=== PATIENT | male | born 1945 | race Asian ===

== ENCOUNTER 2017-04-03 15:31 | Emergency (ER) | payer MEDICARE, OTHER ==
--- NOTE | 2017-04-03 16:48 | RAD ---
HISTORY: Fall, head trauma COMPARISONS: None TECHNIQUE: Multiple contiguous axial CT scans were obtained of the head without intravenous contrast. FINDINGS: HEMORRHAGE/INFARCT: There is no hemorrhage or acute infarct. MASSES/SHIFT: There is no mass or shift. EXTRA-AXIAL SPACES: There are no extra-axial fluid collections. SULCI AND VENTRICLES: There is diffuse and proportional enlargement of the sulci and ventricles. CEREBRUM: There is encephalomalacia consistent with remote infarct of the left posterior frontal and anterior parietal lobe, of the left basal ganglia, and of the right frontal lobe. BRAINSTEM: There are no focal parenchymal abnormalities. CEREBELLUM: There are no focal parenchymal abnormalities. VESSELS: The vessels are grossly normal. PARANASAL SINUSES: The paranasal sinuses are clear. ORBITS: The orbits are unremarkable. BONES AND SOFT TISSUE: No bone or soft tissue abnormalities are noted. OTHER: None IMPRESSION: 1. INVOLUTIONAL CHANGE WITH MULTIFOCAL CHRONIC INFARCTS. 2. NO ACUTE INTRACRANIAL PATHOLOGY.
--- NOTE | 2017-04-03 16:55 | RAD ---
HISTORY: Fall, head trauma COMPARISONS: None TECHNIQUE: Multiple contiguous axial CT scans were obtained of the cervical spine without intravenous contrast, with coronal and sagittal multiplanar reformations. FINDINGS: BRAIN: The visualized brain is unremarkable CENTRAL CANAL: Evaluation of the central canal is limited on CT technique; however, there is no obvious canalicular mass or epidural hemorrhage. ALIGNMENT: There is straightening with reversal of the normal cervical lordosis. VERTEBRAL BODIES: The odontoid process is intact. The atlantoaxial intervals are symmetric. The vertebral bodies are normal in attenuation, without fracture. There is multilevel anterolateral marginal osteophyte formation. JOINTS: There is osteoarthritis of intervertebral facet joints. MUSCULATURE: Unremarkable INTERVERTEBRAL DISCS: There is diffuse loss of intervertebral disc height. AXIAL IMAGES: On axial imaging, there is diffuse moderate neural foraminal narrowing, more severe narrowing on the right at C6-C7. There is mild narrowing of the central canal at C6-C7. SOFT TISSUES: There is minimal ossification of the tectorial membrane. The visualized soft tissues of the neck are unremarkable. The prevertebral fat stripe is preserved. OTHER: None. IMPRESSION: DEGENERATIVE DISC DISEASE AND OSTEOARTHRITIS. NO ACUTE OSSEOUS INJURY TO THE CERVICAL SPINE
--- NOTE | 2017-04-03 18:04 | ED ---
Head Injury - HPI Summary HPI Summary: Pt here w/ head injury earlier today. Was hiking with family and as he took his last step down from trail, fell forward - tripped -hit Rt hand and top of head. Head is bleeding. No LOC, JAMISON, change in vision, nausea, vomiting, neck pain, weakness, numbness, tingling, syncope. Pt went to lunch with his family after accident - here because he;s still bleeding. Takes plavix and ASA d/t an old CVA. Rt wrist is w/ FROM and w/o pain - mild abrasion and bruising here only. No other areas of injury to report. - History Of Current Complaint Chief Complaint: EDLacSutureRecheck Stated Complaint: FALL/HEAD LAC Time Seen by Provider: 04/03/17 17:34 Hx Obtained From: Patient, Family/Operations Controller - daughter, Pain Intensity: 2 - Allergies/Home Medications Allergies/Adverse Reactions: Allergies Allergy/AdvReac Type Severity Reaction Status Date / Time No Known Allergies Allergy Verified 04/03/17 15:35 PMH/Surg Hx/FS Hx/Imm Hx Previously Healthy: Yes Endocrine/Hematology History: Reports: Hx Anticoagulant Therapy - plavix + ASA, Hx Diabetes - controlled Cardiovascular History: Reports: Hx Hypercholesterolemia - controlled, Hx Hypertension - controlled Neurological History: Reports: Hx CVA - on plavix, asa, statin - Immunization History Immunizations Up to Date: Yes Infectious Disease History: No Infectious Disease History: Denies: Hx of Known/Suspected MRSA, Traveled Outside the in Last 30 Days - Family History Known Family History: Positive: None - Social History Occupation: Retired Lives: With Family Alcohol Use: Occasionally Alcohol Amount: socially Hx Substance Use: No Substance Use Type: Reports: None Hx Tobacco Use: Yes Smoking Status (MU): Former Smoker Review of Systems Constitutional: Negative Negative: Fever, Chills, Fatigue Eyes: Negative Negative: Photophobia, Blurred Vision, Diplopia ENT: Negative Negative: Dental Pain Cardiovascular: Negative Negative: Chest Pain Respiratory: Negative Negative: Shortness Of Breath Gastrointestinal: Negative Negative: Vomiting, Nausea Positive: no symptoms reported Musculoskeletal: Other - see HPI Skin: Other - see HPI Neurological: Negative Negative: Headache, Weakness, Paresthesia, Numbness, Syncope, Slurred Speech Psychological: Normal All Other Systems Reviewed And Are Negative: Yes Physical Exam Triage Information Reviewed: Yes Vital Signs On Initial Exam: Initial Vitals Temp Pulse Resp 98.7 F 80 16 04/03/17 15:35 04/03/17 15:35 04/03/17 15:35 Vital Signs Reviewed: Yes Appearance: Positive: Well-Appearing, No Pain Distress, Well-Nourished Skin: Positive: Warm - superficial laceration over top of frontal scalp - oozing blood at Rt lateral corner Head/Face: Positive: Normal Head/Face Inspection - aside from above - no gross deformity, no battlesign, no step off, no racoon eyes Eyes: Positive: Normal, EOMI, SHARI ENT: Positive: Hearing grossly normal, Pharynx normal, TMs normal - no hemotympanum. Negative: Nasal drainage Dental: Negative: Dental Fracture @ Neck: Positive: Supple, Nontender Respiratory/Lung Sounds: Positive: Breath Sounds Present Cardiovascular: Positive: Normal Abdomen Description: Positive: Nontender, Soft Bowel Sounds: Positive: Present Musculoskeletal: Positive: Normal, Strength/ROM Intact Neurological: Positive: Normal, Sensory/Motor Intact, Alert, Oriented to Person Place, Time, CN Intact II-III Psychiatric: Positive: Normal Procedures - Procedure Summary Procedure Summary: wound on top of head cleaned with antiseptic - pressure applied and bleeding stopped - applied triple antibiotic ointment and provided dressing in the event starts bleeding again during sleep, etc. - pt tolerated well Diagnostics - Vital Signs Vital Signs Temp Pulse Resp BP Pulse Ox 04/03/17 15:37 98.7 F 80 16 135/76 100 04/03/17 15:35 98.7 F 80 16 - Laboratory Lab Statement: Any lab studies that have been ordered have been reviewed, and results considered in the medical decision making process. Head Injury Course/Dx Course Of Treatment: Pt appears well and CT's are neg for acute pathology. D/c' d home w/ advise to monitor for danger s/sx. Pt and family agree to keep wound clean, f/u w/ PCP and return to ED if danger s/sx present. - Diagnoses Provider Diagnoses: Fall from standing, Scalp laceration, Head injury, Contusion of right wrist Discharge - Discharge Plan Condition: Stable Disposition: HOME Patient Education Materials: Head Injury (ED), Abrasion (ED) Referrals: Non Staff,Doctor [Primary Care Provider] - Additional Instructions: Keep area clean and covered with triple antibiotic ointment - after 48 hours, you may gently wash the area with soap and water - rinse well and pat dry with clean cloth then reapply triple antibiotic ointment. If you develop mild headache, you may try acetaminophen 650mg however follow-up with your PCP or return to ED Follow-up with your PCP in 3 days for wound recheck If your wound is oozing blood, apply constant pressure for 20-40 minutes. If active bleeding occurs and it is not controlled with this method, return to ED. If the area becomes red, swollen, develops purulent drainage and/or you develop fever, chills, return to ED Monitor for signs of concussion/internal head bleeding. These may include but are not limited to: severe headache, photosensitivity, nausea/vomiting, weakness , numbness, tingling, dizziness, tinnitus, syncope, trouble breathing or swallowing. If these occur go to nearest ED ROD.
[2017-04-03 18:42] VITALS: BP 117/66
== END 2017-04-03 18:42 | disposition home or self-care (01) ==
LOC: ED 15:31
DX: S01.01XA Laceration without foreign body of scalp, initial encounter (principal); S09.90XA Unspecified injury of head, initial encounter; S60.211A Contusion of right wrist, initial encounter; W19.XXXA Unspecified fall, initial encounter; Y93.9 Activity, unspecified; Y92.89 Other specified places as the place of occurrence of the external cause; Z79.01 Long term (current) use of anticoagulants
CPT/HCPCS: 70450; 72125; 99282